=== PATIENT | female | born 1995 | race Hispanic/Latino ===

== ENCOUNTER 2023-01-18 23:05 | Emergency (ER) | payer OTHER ==
[~2023-01-18] VITALS: Ht 154.9 cm; Wt 63.5 kg
[2023-01-19] MEDS ORDERED: DIPH50 PO (02:50)
[2023-01-19] MEDS ORDERED: PRED20TA3 PO (02:50)
[2023-01-19] MEDS ORDERED: DiphenhydrAMINE HCL 50 MG/ML VIAL IV ONE (03:00)
[2023-01-19] MEDS ORDERED: SOLU-MEDROL 125MG VIAL IVP ONE (03:00)
[2023-01-19] MEDS ORDERED: EPINEPHRINE PF 1MG (1:1,000) 1 MG/ML AMP IM ONE (03:00)
[2023-01-19] MEDS ORDERED: FAMOTIDINE 20MG VIAL IV ONE (03:00)
[2023-01-19] MEDS ORDERED: FAMO-136 PO (04:25)
[2023-01-19 04:34] VITALS: BP 107/50; PULSE 100; RESP 15; O2SAT 98
== END 2023-01-19 05:04 | disposition home or self-care (01) ==
LOC: EDH 23:05
DX: T78.49XA Other allergy, initial encounter (principal); Z79.899 Other long term (current) drug therapy; Z98.890 Other specified postprocedural states; Z88.8 Allergy status to other drugs, medicaments and biological substances; X58.XXXA Exposure to other specified factors, initial encounter
CPT/HCPCS: 99284; 96374; 96375; 96372; J1200; J3490; J2930; J0171